=== PATIENT | female | born 1990 | race African-American/Black ===

== ENCOUNTER 2017-12-25 08:59 | Emergency (ER) | payer OTHER, MEDICAID ==
[~2017-12-25] VITALS: Ht 157.5 cm; Wt 63.0 kg
[2017-12-25 12:04] LABS: CLARITY URINE CLEAR (CLEAR); COLOR URINE YELLOW (YELLOW); KETONES URINE NEGATIVE (NEGATIVE); LEUKOCYTE ESTERASE URINE NEGATIVE (NEGATIVE); NITRITE URINE NEGATIVE (NEGATIVE); OCCULT BLOOD URINE TRACE (NEGATIVE); PH URINE 7.5 (4.5-8.0); PROTEIN URINE NEGATIVE (NEGATIVE); SPECIFIC GRAVITY URINE 1.017 (1.005-1.030); UROBILINOGEN URINE 0.2 E.U./dL (0.2-1.0)
[2017-12-25 12:11] LABS: BASOPHILS % 0.4 % (0.0-2.0); EOSINOPHILS % 0.9 % (0.0-5.0); HEMATOCRIT. 32.2 % (36.0-48.0); HEMOGLOBIN. 10.2 g/dL (12.0-16.0); LYMPHOCYTES % 20.8 % (20.0-50.0); MEAN CORPUSCULAR HEMOGLOBIN 24.3 pg (28.0-32.0); MEAN CORPUSCULAR VOLUME 76.4 fL (81.0-99.0); MONOCYTES % 4.9 % (2.0-8.0); PLATELET 403 x1000/uL (130-400); RED BLOOD CELL COUNT 4.21 mill/uL (4.2-5.4); RED CELL DISTRIBUTION WIDTH 16.4 % (11.6-14.6)
[2017-12-25 12:19] LABS: INR 1.1; PROTHROMBIN TIME 11.1 sec (9.4-11.6)
[2017-12-25 12:22] LABS: CHLORIDE 109 mEq/L (98-107)
[2017-12-25 12:28] LABS: TROPONIN I < 0.02 ng/mL (0.00-0.04)
[2017-12-25 12:33] LABS: *AMPHETAMINES SCREEN URINE NEGATIVE (NEGATIVE); *BARBITURATES SCREEN URINE NEGATIVE (NEGATIVE); *BENZODIAZEPINES SCREEN URINE NEGATIVE (NEGATIVE); *COCAINE SCREEN URINE NEGATIVE (NEGATIVE); CANNABINOID URINE SCREEN NEGATIVE (NEGATIVE); METHADONE URINE SCREEN NEGATIVE (NEGATIVE); OPIATES URINE SCREEN NEGATIVE (NEGATIVE); PHENCYCLIDINE URINE SCREEN NEGATIVE (NEGATIVE)
[2017-12-25 12:55] LABS: HEPATITIS B SURFACE ANTIGEN NEGATIVE
[2017-12-25 13:23] LABS: HEPATITIS B CORE AB IGM NEGATIVE
[2017-12-25 13:25] LABS: HEPATITIS A AB IGM NEGATIVE (NEGATIVE)
[2017-12-25 16:10] VITALS: BP 141/92
== END 2017-12-25 17:55 | disposition home or self-care (01) ==
LOC: ER 08:59
DX: N20.0 Calculus of kidney (principal); N17.0 Acute kidney failure with tubular necrosis; N39.0 Urinary tract infection, site not specified; E86.0 Dehydration; E87.8 Other disorders of electrolyte and fluid balance, not elsewhere classified; R10.0 Acute abdomen; R11.2 Nausea with vomiting, unspecified; D50.9 Iron deficiency anemia, unspecified; R79.89 Other specified abnormal findings of blood chemistry; R61 Generalized hyperhidrosis; N83.209 Unspecified ovarian cyst, unspecified side; D47.3 Essential (hemorrhagic) thrombocythemia; J45.909 Unspecified asthma, uncomplicated
CPT/HCPCS: 36415; 71045; 74176; 80053; 80305; 81003; 81025; 83036; 83880; 84484; 85025; 85610; 86705; 86709; 86803; 87340; 93005; 99285

== ENCOUNTER 2019-08-10 09:38 | Emergency (ER) | payer OTHER, MEDICAID ==
[~2019-08-10] VITALS: Ht 167.6 cm; Wt 100.0 kg
[2019-08-10] MEDS ORDERED: IPRATROPIUM BROMIDE (0.02%) 0.5MG/2.5ML NEB HHN STA (09:59)
[2019-08-10] MEDS ORDERED: PREDNISONE 20MG TABLET PO STA (09:59)
[2019-08-10] MEDS ORDERED: ALBUTEROL (0.083%) 2.5MG/3ML NEB HHN STA (09:59)
[2019-08-10 12:02] VITALS: BP 135/95
== END 2019-08-10 12:35 | disposition home or self-care (01) ==
LOC: ER 09:50
DX: J45.901 Unspecified asthma with (acute) exacerbation (principal); K59.00 Constipation, unspecified; Z87.440 Personal history of urinary (tract) infections; Z87.09 Personal history of other diseases of the respiratory system
CPT/HCPCS: 94644; 99285; J7512; J7611